=== PATIENT | male | born 1970 | race African-American/Black ===

== ENCOUNTER 2017-12-07 02:40 | Emergency (ER) | payer SELFPAY ==
[~2017-12-07] VITALS: Ht 190.5 cm; Wt 80.0 kg
[2017-12-07 02:44] VITALS: BP 148/103; PULSE 95; RESP 12; TEMP 98.7; O2SAT 99
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
[2017-12-07] MEDS ORDERED: SODIUM CHLOR 0.9% 1000 ML INJ 1,000 ML IV ONE (03:15)
[2017-12-07] MEDS ORDERED: ONDANSETRON HCL 4 MG/2 ML VIAL IV PUSH ONE (03:15)
[2017-12-07 03:37] VITALS: BP 156/105; PULSE 76; RESP 18; O2SAT 97
[2017-12-07 03:43] LABS: BICARBONATE 26.5 MEQ/L (21.0-32.0); CALCIUM 8.8 MG/DL (8.5-10.1); CREATININE 1.14 MG/DL (0.60-1.30)
== END 2017-12-07 04:31 | disposition home or self-care (01) ==
LOC: NEPE 02:40
DX: F10.129 Alcohol abuse with intoxication, unspecified (principal); Y90.6 Blood alcohol level of 120-199 mg/100 ml; F19.10 Other psychoactive substance abuse, uncomplicated; F12.90 Cannabis use, unspecified, uncomplicated; Z72.0 Tobacco use
CPT/HCPCS: 80048; 80307; 96374; 99284; J2405; J7030